=== PATIENT | male | born 2000 | race Caucasian/White ===

== ENCOUNTER → 2021-10-20 14:46 | Outpatient (CLI) | payer SELFPAY | PROVIDERS: Visit Provider Nurse Practitioner | DX: Z20.822 Contact with and (suspected) exposure to COVID-19 (principal) | CPT/HCPCS: C9803; U0003; U0005 ==

== ENCOUNTER 2023-12-19 08:34 | Emergency (ER) | payer BC, SELFPAY ==
[2023-12-19 08:55] VITALS: BP 134/71; PULSE 75; RESP 18; TEMP 36.6; O2SAT 97; BMI 27.8
--- NOTE | 2023-12-19 09:03 | ED_ITS ---
Discharge Plan Disposition Patient Disposition: Home, Self-Care Condition: Good Prescriptions Prescriptions: New oseltamivir [Tamiflu] 75 mg capsule 75 mg PO BID Qty: 10 0RF aqliffafsiwxxxy-[id number] [Bromfed DM] 2-30-10 mg/5 mL Syrup 5 ml PO Q6H PRN (Reason: Cough) Qty: 240 0RF ondansetron 4 mg Tablet,Disintegrating 4 mg PO Q8H PRN (Reason: Nausea) Qty: 12 0RF Referrals Follow up/Referrals: Provider,Referral, MD [Primary Care Provider] - See instructions Activity Restrictions/Add. Instructions Additional Instructions/Restrictions: Drink plenty of fluids. Take tylenol or ibuprofen for pain or fever. Take the medications as directed. Follow up with your regular doctor. GO TO THE ER FOR ANY WORSENING SYMPTOMS Clinical Impressions Clinical Impression: Influenza A Stand Alone Forms Stand Alone Forms: Work/School Release Instructions Patient Instructions: DI for Influenza -- Adult, Oseltamivir Discharge ED Provider: Job Melendez [facility] General Stated complaint: congestion, cough, diarrea Time Seen by Provider: 12/19/23 09:03 History of Present Illness Provider Complaint: He states that for the past 1 day he has had fever, chills, body aches, nausea, and malaise. He has been exposed to covid-19 Related Data Previous Rx's Medication Instructions Recorded gdzgcmicisktluy-cymccvrrikhfqno-GJ 5 ml PO Q6H PRN Cough #240 mL 12/19/23 2 mg-30 mg-10 mg/5 mL oral syrup (Bromfed DM) ondansetron 4 mg disintegrating 4 mg PO Q8H PRN Nausea #12 tabs 12/19/23 tablet oseltamivir 75 mg capsule (Tamiflu) 75 mg PO BID #10 caps 12/19/23 Allergies Allergy/AdvReac Type Severity Reaction Status Date / Time No Known Allergies Allergy Verified 12/19/23 09:07 [facility] Disclaimer: The information contained in this section may have been updated after the patient was seen, as this information can be updated by other users. Social History Smoking Status: Never smoker alcohol intake: never current occupational status: employed Travel in the last 8 weeks: None ROS Obtained: Yes All systems reviewed & no additional complaints except as documented Constitutional Constitutional: Reports chills and Reports fever(s) Eyes Eyes: Denies eye discharge ENT Ears, Nose, Mouth, and Throat: Reports as per HPI Cardiovascular Cardiovascular: Denies chest pain Respiratory Respiratory: Denies chest congestion and Reports cough Gastrointestinal Gastrointestingal: Reports nausea; Denies abdominal pain, constipation, cramping, diarrhea or vomiting Musculoskeletal Musculoskeletal: Denies arthralgias Integumentary/Breasts Skin/Breast: Denies rash Neurologic Neurologic: Denies paresthesias Physical Exam General General appearance: alert and in no apparent distress Eye Eye exam: Present normal appearance, PERRL and EOMI ENT ENT exam: Present mucous membranes moist and normal external ear exam Expanded ENT Exam External ear exam: Present normal external inspection TM/Canal exam: Bilateral TM: erythema and bulging Nose exam: Absent sinus tenderness Nasal speculum exam: Bilateral: normal Mouth exam: Present normal external inspection; Absent drooling Teeth exam: Present normal inspection Throat exam: Present tonsillar erythema and tonsillomegaly Neck Neck exam: Present normal inspection, full ROM and trachea midline; Absent tenderness, lymphadenopathy or thyromegaly Chest Chest inspection: Present normal inspection and symmetric chest wall rise; Absent tenderness or rash Respiratory Respiratory exam: Present normal lung sounds bilaterally; Absent respiratory distress, wheezes, stridor or accessory muscle use Cardiovascular Cardiovascular exam: Present regular rate, normal rhythm and normal heart sounds Abdominal Exam Abdominal exam: Present soft; Absent distention, tenderness, guarding, rebound or rigidity Extremities Exam Extremities exam: Present normal inspection, full ROM and normal capillary refill; Absent tenderness or calf tenderness Back Exam Back exam: Present normal inspection and full ROM; Absent tenderness Neurological Exam Neurological exam: Present alert and oriented X3 Psychiatric Psychiatric exam: Present normal affect and normal mood Skin Skin exam: Present warm, dry, intact and normal color Lymphatic Lymphatic Findings: no adenopathy Medical Decision Making Medical Records Medical records reviewed: No I reviewed the patient's medical records. [place] Inquiry Pt receiving controlled substance: No Lab Data Lab results reviewed: Yes I reviewed the patient's lab results.
[2023-12-19 09:16] LABS: UTC Influenza A Antigen Positive (Negative); UTC Influenza B Antigen Negative (Negative)
[2023-12-19 09:17] LABS: UTC Strep Screen (Rapid) Negative (Negative)
[2023-12-19 09:48] VITALS: BP 134/71; PULSE 75; RESP 18; TEMP 36.6; O2SAT 97
[2023-12-19 13:56] LABS: Influenza A, PCR Not Detected (NotDetected); Influenza B, PCR Not Detected (NotDetected)
[2023-12-19 14:22] LABS: Coronavirus 19, PCR Detected (NotDetected)
== END 2023-12-19 09:48 | disposition home or self-care (01) ==
PROVIDERS: Emergency Provider Nurse Practitioner Family
DX: U07.1 COVID-19 (principal); J10.1 Influenza due to other identified influenza virus with other respiratory manifestations; R50.9 Fever, unspecified; R05.9 Cough, unspecified; R11.0 Nausea; R53.81 Other malaise
CPT/HCPCS: 87636; 87804; 87880; 99204; 99212; G0463

== ENCOUNTER 2024-01-16 18:08 | Emergency (ER) | payer BC, SELFPAY ==
[2024-01-16 18:10] VITALS: BP 144/95; PULSE 90; RESP 15; TEMP 36.9; O2SAT 99; BMI 27.2
--- NOTE | 2024-01-16 18:10 | PC.NURSE ---
while attempting to start and IV on the pt he jerked his arm back three times interfering with the stick. informed pt that he should not move due to the needle. pt reports he doesnt want to have blood work done, he is here for a three day work note.
--- NOTE | 2024-01-16 18:21 | PC.NURSE ---
KURTIS ROUNDED ON PT. NO QUESTIONS OR CONCERNS VOICED AT THIS TIME. PT UPDATED ON WAIT TIME.
--- NOTE | 2024-01-16 18:29 | PC.NURSE ---
pt moved back to room from lobby
[2024-01-16 18:31] VITALS: BMI 27.2
[2024-01-16 18:36] VITALS: BP 144/95; PULSE 94; O2SAT 99
[2024-01-16 18:39] LABS: Microscopic, Urine URINE MICROSCOPIC (MICROSCOPIC)
[2024-01-16 18:54] LABS: Appearance,Urine CLEAR (Clear); Blood, Urine Negative (Negative); Color,Urine YELLOW (Yellow); Glucose,Urine (UA) Negative (Negative); Ketones,Urine Negative (Negative); Leukocyte Esterase,Urine Negative (Negative); Nitrate,Urine Negative (Negative); PH,Urine 5.5 (5.0-8.5); Protein,Urine Negative (Negative); Specific Gravity, Urine >= 1.030 (1.005-1.030)
[2024-01-16 18:55] LABS: Bilirubin,Urine 1+ (Negative)
[2024-01-16 19:03] VITALS: BP 102/44; PULSE 40; O2SAT 98
[2024-01-16 19:04] LABS: RBC,Urine Occasional #/hpf (0-3); Squamous Epithelial Cell,Urine Occasional #/hpf (0-5)
[2024-01-16 19:05] VITALS: BP 94/56; PULSE 57; O2SAT 100
--- NOTE | 2024-01-16 19:08 | PC.NURSE ---
Addendum entered by Carol Duarte RN 01/16/24 19:31: BP was 102/44. Current - 112/68 HR 64 Original Note: H Adán at bedside to start IV. Pt had vagal response. HR dropped to 37. No LOC. MD Chaudhary aware and at bedside.
--- NOTE | 2024-01-16 19:18 | PC.NURSE ---
finger stick 71
[2024-01-16 19:19] LABS: Basophils % 0.3 % (0.1-2.0); Eosinophils # 0.4 K/mm3 (0.0-0.4); Hematocrit 56.5 % (42.0-52.0); Lymphocytes # 1.4 K/mm3 (0.7-4.5); Lymphocytes % 13.1 % (10-50); Mean Corpuscular HGB Conc 32.4 g/dL (31.8-35.4); Mean Corpuscular Hemoglobin 31.4 pg (27.0-31.2); Mean Corpuscular Volume 96.8 fl (80-94); Mean Platelet Volume 7.9 fl (7.4-10.4); Monocytes # 0.6 K/mm3 (0.1-1.0); Monocytes % 5.3 % (1.7-9.3); Neutrophils # 8.2 K/mm3 (1.8-7.8); Neutrophils % 77.2 % (37.0-80.0); Platelet Count 274 K/mm3 (142-424); Red Blood Count 5.83 M/mm3 (4.60-6.20); Red Cell Distribution Width 13.9 % (11.5-17.5); White Blood Count 10.6 K/mm3 (4.8-10.8)
[2024-01-16 19:30] VITALS: BP 112/68; PULSE 72; O2SAT 99
[2024-01-16 19:32] LABS: Alanine Aminotransferase 27 U/L (12-78); Albumin/Globulin Ratio 1.4 (1.1-1.8); Alkaline Phosphatase 69 U/L (38-126); Anion Gap 8.3 mEq/L (5-15); Aspartate Amino Transferase 36 U/L (17-59); Bilirubin,Total 1.4 mg/dl (0.2-1.3); Blood Urea Nitrogen 17 mg/dl (9-20); Calcium 9.6 mg/dl (8.4-10.2); Carbon Dioxide 32 mmol/L (22.0-30.0); Chloride 104 mmol/L (98-107); Creatinine Clearance Estimated 117 mL/min (50-200); Estimated Glomerular Filt Rate 83 ml/min (>60); GFR (African American) 100 ML/MIN (>60); Globulin 3.5 g/dL (1.3-3.2); Glucose 86 mg/dl (74-100); Potassium 4.3 mmoL/L (3.5-5.1); Sodium 140 mmol/L (136-145); Total Protein,Serum 8.5 g/dl (6.3-8.2)
[2024-01-16 19:43] LABS: Hemoglobin 18.3 g/dL (14.1-18.0)
[2024-01-16] MEDS: BELLADONNA ALKALOIDS 60 ML ML PO (20:27)
[2024-01-16] MEDS: LACTATED RINGERS 1000ML 1,000 ML 999 ML IV (20:28)
[2024-01-16] MEDS: ONDANSETRON 4MG/2ML VIAL 4 MG IV (20:28)
[2024-01-16 20:29] LABS: Lipase 114 U/L (23-300)
--- NOTE | 2024-01-16 20:33 | PC.NURSE ---
Pt took meds and is resting comfortably at this time.
[2024-01-16 21:17] VITALS: BP 117/66; PULSE 78; RESP 18; TEMP 37; O2SAT 98
--- NOTE | 2024-01-17 01:16 | ED_ITS ---
Discharge Plan Disposition Patient Disposition: Home, Self-Care Condition: Good Prescriptions Prescriptions: New ondansetron 4 mg tablet,disintegrating 4 mg PO Q6H PRN (Reason: nausea and vomiting) Qty: 20 0RF No Action oseltamivir [Tamiflu] 75 mg capsule 75 mg PO BID Qty: 10 0RF okivbpsqqlythfu-wwokpgazi-CA [Bromfed DM] 2-30-10 mg/5 mL Syrup 5 ml PO Q6H PRN (Reason: Cough) Qty: 240 0RF ondansetron 4 mg Tablet,Disintegrating 4 mg PO Q8H PRN (Reason: Nausea) Qty: 12 0RF Referrals Follow up/Referrals: Provider,Referral, MD [Primary Care Provider] - See instructions Clinical Impressions Clinical Impression: Diarrhea, Abdominal pain Stand Alone Forms Stand Alone Forms: Work/School Release Instructions Patient Instructions: DI for Acute Abdominal Pain Discharge ED Provider: Iveth Chaudhary General Adult HPI General Chief complaint: Abdominal Pain Stated complaint: upper abd pain Time Seen by Provider: 01/16/24 19:27 Mode of Arrival: Ambulatory Source of Information: Patient Limitations: No Limitations Description of Symptoms (Recalled from ER Triage Doc. by RN): pt presents to ED with c/o nausea, vomitting, weakness. pt reports that she he attempts to drink water it goes straight through him. symptoms began today. History of Present Illness HPI narrative: 23-year-old male previously healthy presents with 1 day of diarrhea and epigastric discomfort. For the past day patient has had a multiple episodes of diarrhea, nausea, reduced appetite, and generalized weakness. He is concerned he is becoming dehydrated. Related Data Previous Rx's Medication Instructions Recorded gmylnjkgtbwolnw-gdraxjgkcnbvgft-JS 5 ml PO Q6H PRN Cough #240 mL 12/19/23 2 mg-30 mg-10 mg/5 mL oral syrup (Bromfed DM) ondansetron 4 mg disintegrating 4 mg PO Q8H PRN Nausea #12 tabs 12/19/23 tablet oseltamivir 75 mg capsule (Tamiflu) 75 mg PO BID #10 caps 12/19/23 ondansetron 4 mg disintegrating 4 mg PO Q6H PRN nausea and 01/16/24 tablet vomiting #20 tabs Allergies Allergy/AdvReac Type Severity Reaction Status Date / Time No Known Allergies Allergy Verified 12/19/23 09:07 [facility] Disclaimer: The information contained in this section may have been updated after the patient was seen, as this information can be updated by other users. Social History Smoking Status: Current every day smoker alcohol intake: never current occupational status: employed Travel in the last 8 weeks: None ROS Obtained: Yes All systems reviewed & no additional complaints except as documented Physical Exam General General appearance: alert and in no apparent distress Head Head exam: atraumatic, normocephalic and normal inspection Eye Eye exam: Present normal appearance, PERRL and EOMI ENT ENT exam: Present normal exam, normal oropharynx, mucous membranes moist, TM's normal bilaterally and normal external ear exam Neck Neck exam: Present normal inspection, full ROM and trachea midline; Absent me ningismus or lymphadenopathy Chest Chest inspection: Present normal inspection and symmetric chest wall rise; Absent tenderness Respiratory Respiratory exam: Present normal lung sounds bilaterally; Absent respiratory distress Cardiovascular Cardiovascular exam: Present regular rate and normal rhythm; Absent JVD Abdominal Exam Abdominal exam: Present soft, tenderness (Mild tenderness to the epigastrium.) and normal bowel sounds; Absent distention, guarding, rebound, rigidity, Chaudhary's sign or tenderness at [place]Bur[place]'s Point Abdominal tenderness: Present epigastrium; Absent RUQ, RLQ, LUQ or LLQ Extremities Exam Extremities exam: Present normal inspection, full ROM and normal capillary refill; Absent calf tenderness Back Exam Back exam: Present normal inspection; Absent tenderness Neurological Exam Neurological exam: Present alert and oriented X3 Psychiatric Psychiatric exam: Present normal affect and normal mood Skin Skin exam: Present warm, dry, intact and normal color Lymphatic Lymphatic Findings: no adenopathy Medical Decision Making [place] Inquiry Pt receiving controlled substance: No Vital Signs: 01/16/24 18:10 01/16/24 18:36 01/16/24 19:03 Temperature 98.4 F Temperature Source Oral Pulse Rate 94 H 40 L Pulse Rate [Left Radial] 90 Respiratory Rate 15 Blood Pressure 144/95 H 102/44 L Blood Pressure [Right Arm] 144/95 H Blood Pressure Mean [Right Arm] 111 02 Sat by Pulse Oximetry 99 99 98 Oxygen Delivery Method Room Air Room Air 01/16/24 19:05 01/16/24 19:30 01/16/24 21:17 Temperature 98.6 F Temperature Source Oral Pulse Rate 57 L 72 78 Pulse Rate [Left Radial] Respiratory Rate 18 Blood Pressure 94/56 L 112/68 117/66 Blood Pressure [Right Arm] Blood Pressure Mean [Right Arm] 02 Sat by Pulse Oximetry 100 99 Oxygen Delivery Method Room Air Lab Data Lab Results 01/16/24 18:31: Urine Color Yellow, Urine Appearance Clear, Urine pH 5.5, Ur Specific [place] >= 1.030, Urine Protein Negative, Urine Glucose (UA) Negative, Urine Ketones Negative, Urine Blood Negative, Urine Nitrate Negative, Urine Bilirubin 1+ A, Urine Urobilinogen 1.0, Ur Leukocyte Esterase Negative, Urine RBC Occasional, Urine WBC None, Ur Squamous Epith Cells Occasional, Urine Bacteria None 01/16/24 19:00: WBC 10.6, RBC 5.83, Hgb 18.3 H, Hct 56.5 H, MCV 96.8 H, MCH 31.4 H, MCHC 32.4, RDW 13.9, Plt Count 274, MPV 7.9, Neut % (Auto) 77.2, Lymph % (A uto) 13.1, [place] % (Auto) 5.3, Eos % (Auto) 4.0, Baso % (Auto) 0.3, Neut # (Auto) 8.2 H, Lymph # (Auto) 1.4, [place] # (Auto) 0.6, Eos # (Auto) 0.4, Baso # (Auto) 0.0, Sodium 140, Potassium 4.3, Chloride 104, Carbon Dioxide 32 H, Anion Gap 8.3, BUN 17, Creatinine 1.10, Estimated Creat Clear 117, Estimated GFR 83, Est GFR ( Amer) 100, Glucose 86, Calcium 9.6, Total Bilirubin 1.4 H, AST 36, ALT 27, Alkaline Phosphatase 69, Total Protein 8.5 H, Albumin 5.0, Globulin 3.5 H, Albumin/Globulin Ratio 1.4, Lipase 114 01/16/24 19:00 01/16/24 19:00 Orders (Tests/Meds): ED MEDICATIONS Discontinued Medications Generic Name Dose Route Start Last Admin Trade Name Freq PRN Reason Stop Dose Admin Belladonna Alkaloids 60 ml 01/16/24 20:17 01/16/24 20:27 Belladonna Alkaloids 60 Ml Ml PO 01/16/24 20:18 60 ml ONCE ONE Administration Lactated Ringer's 1,000 mls @ 999 mls/hr 01/16/24 20:17 01/16/24 20:28 Lactated Ringer's 1000 Ml Bag IV 01/16/24 21:17 999 mls/hr .Q1H1M ONE Administration Ondansetron HCl 4 mg 01/16/24 20:17 01/16/24 20:28 Ondansetron 4mg/2ml Vial IV 01/16/24 20:18 4 mg ONCE ONE Administration ORDERS Category Date Time Status CBC w/Auto Diff [Complete Blood Count Auto Diff] Stat Lab 01/16/24 19:00 Completed CMP [Comprehensive Metabolic Panel] Stat Lab 01/16/24 19:00 Completed Lipase Stat Lab 01/16/24 19:00 Completed UA [Urinalysis and Microscopic] Stat Lab 01/16/24 18:31 Completed Medical Decision Narrative: Consider multiple causes of patient's diarrhea and epigastric discomfort including viral gastroenteritis, gastritis, peptic ulcer disease, hepatitis, pancreatitis, less likely cholecystitis, appendicitis, or other concerns. Obtained CBC, CMP, lipase, and this was significant only for hemoconcentration but no NEO or other complications. Administered LR, Zofran, GI cocktail, and patient had improvement in his symptoms. Considered CT however patient has exceedingly low likelihood of surgical pathology given his discomfort as dramatically improved and he has minimal tenderness to palpation on his abdominal exam. He is comfortable monitoring his symptoms at home and requests a work excuse. Discharged stable and symptoms well-controlled. Critical Care Critical Care Time Critical Care Time: No
== END 2024-01-16 21:25 | disposition home or self-care (01) ==
PROVIDERS: Emergency Provider Emergency Medicine
DX: R10.13 Epigastric pain (principal); R11.2 Nausea with vomiting, unspecified; R53.1 Weakness; R19.7 Diarrhea, unspecified; F17.200 Nicotine dependence, unspecified, uncomplicated
CPT/HCPCS: 80053; 81001; 83690; 85025; 96361; 96374; 99285; J2405